=== PATIENT | male | born 1975 | race Caucasian/White ===

== ENCOUNTER 2018-04-24 09:22 | Emergency (ER) | payer BC ==
--- NOTE | 2018-04-24 10:28 | UC ---
Complaint Male HPI - HPI Summary HPI Summary: PATIENT COMPLAINS OF SUPRAPUBIC DISCOMFORT/PRESSURE AND DYSURIA WITH SENSATION OF INCOMPLETE VOIDING FOR THE PAST MONTH OR SO. NO FEVER, NAUSEA, LOW BACK PAIN. NO PENILE DISCHARGE. STATES HE HAD THESE SYMPTOMS IN HIS EARLY 20s AND HAD A THOROUGH EVALUATION BY UROLOGY WITH NO DIAGNOSIS. LAST TIME SX FLARED WAS ABOUT 5 YEARS AGO. PATIENT DOES ADMIT TO HAVING A LOT OF STRESS RECENTLY DUE TO FAMILY HEALTH CONCERNS WELL JOB-RELATED STRESS. PT IS SEXUALLY ACTIVE WITH HIS ONLY. IS NOT CONCERNED ABOUT STD. - History of Current Complaint Chief Complaint: UCGU Stated Complaint: URINARY ISSUE Time Seen by Provider: 04/24/18 09:48 Hx Obtained From: Patient Onset/Duration: Gradual Onset, Lasting Weeks, Still Present Timing: Intermittent Severity Initially: Moderate Severity Currently: Moderate Pain Intensity: 5 Pain Scale Used: 0-10 Numeric Location: Suprapubic Character: Burning Aggravating Factor(s): Voiding Alleviating Factor(s): Nothing Associated Signs And Symptoms: Positive: Dysuria. Negative: Diaphoresis, Back Pain, Fever, Hematuria, Blood in Stool, Appetite, Nausea, Vomiting(# Of Episodes =), Penile Swelling, Penile Discharge - Allergies/Home Medications Allergies/Adverse Reactions: Allergies Allergy/AdvReac Type Severity Reaction Status Date / Time No Known Allergies Allergy Verified 04/24/18 09:32 Home Medications: Home Medications Multivit-Mins/Iron/Folic/Lycop [Centrum Men's Tablet] 1 tab PO DAILY 04/24/18 [ History Confirmed 04/24/18] Omeprazole CAP* [Prilosec CAP* 20 MG] 1 tab PO DAILY 04/24/18 [History Confirmed 04/24/18] PMH/Surg Hx/FS Hx/Imm Hx Previously Healthy: Yes - Surgical History Surgical History: None - Family History Known Family History: Positive: Non-Contributory - Social History Alcohol Use: Daily Substance Use Type: None Smoking Status (MU): Never Smoked Tobacco Review of Systems All Other Systems Reviewed And Are Negative: Yes Constitutional: Positive: Negative Skin: Positive: Negative Respiratory: Positive: Negative Cardiovascular: Positive: Negative Gastrointestinal: Positive: Abdominal Pain. Negative: Nausea Genitourinary: Positive: Dysuria, Frequency, Vaginal/Penile Burning Physical Exam Triage Information Reviewed: Yes Appearance: Well-Appearing, No Pain Distress, Well-Nourished Vital Signs: Initial Vital Signs Temp 98 F 04/24/18 09:30 Pulse 80 04/24/18 09:30 Resp 18 04/24/18 09:30 BP 134/90 04/24/18 09:30 Pulse Ox 99 04/24/18 09:30 Laboratory Tests 04/24/18 09:42 POC Urine Color Yellow POC Urine Clarity Clear POC Urine pH 6.0 POC Ur Specif [place] <= 1.005 L POC Urine Protein Negative POC Ur Glucose (UA) Negative POC Urine Ketones Negative POC Urine Blood Negative POC Urine Nitrite Negative POC Urine Bilirubin Negative POC Urine Urobilinogen 0.2 POC U Leukocyte Esteras Negative Vital Signs Reviewed: Yes Eyes: Positive: Conjunctiva Clear ENT: Positive: Hearing grossly normal Neck: Positive: Supple Respiratory: Positive: No respiratory distress, No accessory muscle use Cardiovascular: Positive: Pulses Normal Abdomen Description: Positive: Soft, Other: - MILD SUPRAPUBIC TENDERNESS. Negative: CVA Tenderness (R), CVA Tenderness (L), Distended, Guarding Musculoskeletal: Positive: No Edema Neurological: Positive: Alert Psychological: Positive: Age Appropriate Behavior Skin: Negative: Rashes Complaint Male Course/Dx - Course Course Of Treatment: URINE TEST TODAY WAS UNREMARKABLE. PATIENT STATES HE HAS BEEN GIVEN CIPRO FOR HIS SYMPTOMS IN THE PAST WHICH SOMETIMES HELPS. WILL GIVE CIPRO TODAY AND SEND URINE FOR CULTURE. ADVISED PATIENT TO REESTABLISH WITH UROLOGY FOR CONTINUED/ADDITIONAL WORKUP. ALSO DISCUSSED THE POSSIBILITY OF INTERSTITIAL CYSTITIS. PT DECLINES STD TESTING. DECLINES PYRIDIUM. - Differential Dx/Diagnosis Provider Diagnosis: Dysuria Discharge - Sign-Out/Discharge Documenting (check all that apply): Patient Departure All imaging exams completed and their final reports reviewed: No Studies - Discharge Plan Condition: Stable Disposition: HOME Prescriptions: Ciprofloxacin TAB* [Cipro 500 MG TAB*] 500 mg PO BID #10 tab Patient Education Materials: Dysuria (ED), Interstitial Cystitis (ED) Referrals: Brodie CHAU,Dionicio Morales [Primary Care Provider] - If Needed Ajay Barreto MD [Medical Doctor] - 2 Weeks Additional Instructions: URINE TEST TODAY WAS UNREMARKABLE. GIVEN YOUR PROLONGED SYMPTOMS WILL SEND YOUR URINE FOR CULTURE ANYWAY TO CONFIRM NO INFECTION. WILL TREAT EMPIRICALLY WITH CIPRO TWICE DAILY FOR 5 DAYS. CONTINUE TO STAY WELL HYDRATED. CONSIDER THE POSSIBILITY OF INTERSTITIAL CYSTITIS. CONSIDER REEVALUATION BY UROLOGY. INTERSTITIAL CYSTITIS What is bladder pain syndrome? Bladder pain syndrome is a condition that causes people to have bladder pain and urinate often. Bladder pain syndrome is often called "BPS" for short. It is also sometimes called "painful bladder syndrome" or "interstitial cystitis." BPS can happen in both men and women, but it is more common in women. Doctors do not know what causes BPS, but some doctors suspect it might be caused by abnormal changes in the lining of the bladder. Sometimes, BPS happens on its own. Other times, it starts after a person has: -An infection of the urinary tract, vagina, or prostate -Surgery on the bladder, pelvis, or back -An injury to the pelvic area or buttocks What are the symptoms of BPS? All people with BPS have bladder pain that gets better after urinating. Other common symptoms include: -Feeling the need to urinate often, during the day and night (even if you don't actually urinate) -Urinating often, during the day and night -Pain in the lower belly or around the area where urine leaves the body Symptoms of BPS are different from person to person and can be mild or severe. People might not have symptoms every day. But they can have "flares," which are times when their symptoms get worse. Some people find that their symptoms get worse at certain times, such as: -After they have certain foods or drinks -During certain times of their monthly cycle (in women) -After having sex or sitting for a long time -During times of stress Is there a test for BPS? There is no one test to check for BPS. But your doctor or nurse will talk with you, do an exam, and probably do a urine test. Depending on the results, your doctor might do other tests, too. For example, some people have a test called "cystoscopy." During cystoscopy, a doctor puts a thin tube with a camera on the end into the opening in the body where urine comes out (called the urethra). Then he or she advances the tube until it reaches the bladder. That way the doctor can look at the inside of the bladder to see if it is abnormal. How is BPS treated? There are different treatments for BPS. Most people need more than one treatment. Different treatments can include: -Bladder training You can train your bladder to urinate less often by holding your urine for longer periods of time. For example, if you feel the need to urinate every 30 minutes, try to wait and urinate every 45 minutes. -Physical therapy Many people with BPS have tight and painful muscles in the lower belly, groin, and buttocks. A physical therapist can teach you exercises to help relax these muscles. -Medicines Doctors can use different medicines to treat BPS. Some medicines help heal the bladder lining, and others can reduce pain. Some medicines come as pills. Others come as liquids and go into the bladder through a tube that is put up the urethra. -Surgery A person might have surgery if he or she still has symptoms after trying all other treatments. During surgery, a doctor puts a small device in the lower back that connects to the nerve that goes to the bladder. The device sends electrical signals to the nerve that can stop it from feeling pain. Can BPS flares be prevented? To help prevent flares, you can: -Avoid the foods and drinks that make your symptoms worse. -Avoid activities that make your symptoms worse. -Get treated quickly for bladder infections, which can make BPS symptoms worse. - Billing Disposition and Condition Condition: STABLE Disposition: Home
--- NOTE | 2018-04-26 07:25 | ED ---
Progress - Progress Note Progress Note: Ucx came back as NEG (<1000, was prescribed cipro). Pls call pt about his sx, he does not to need to take cipro as he does not have a UTI Course/Dx - Course Course Of Treatment: URINE TEST TODAY WAS UNREMARKABLE. PATIENT STATES HE HAS BEEN GIVEN CIPRO FOR HIS SYMPTOMS IN THE PAST WHICH SOMETIMES HELPS. WILL GIVE CIPRO TODAY AND SEND URINE FOR CULTURE. ADVISED PATIENT TO REESTABLISH WITH UROLOGY FOR CONTINUED/ADDITIONAL WORKUP. ALSO DISCUSSED THE POSSIBILITY OF INTERSTITIAL CYSTITIS. PT DECLINES STD TESTING. DECLINES PYRIDIUM. - Diagnoses Provider Diagnoses: Dysuria Discharge - Sign-Out/Discharge Documenting (check all that apply): Post-Discharge Follow Up - SEE progress note All imaging exams completed and their final reports reviewed: No Studies - Discharge Plan Condition: Stable Disposition: HOME Prescriptions: Ciprofloxacin TAB* [Cipro 500 MG TAB*] 500 mg PO BID #10 tab Patient Education Materials: Dysuria (ED), Interstitial Cystitis (ED) Referrals: Brodie CHAU,Dionicio Morales [Primary Care Provider] - If Needed Ajay Barreto MD [Medical Doctor] - 2 Weeks Additional Instructions: URINE TEST TODAY WAS UNREMARKABLE. GIVEN YOUR PROLONGED SYMPTOMS WILL SEND YOUR URINE FOR CULTURE ANYWAY TO CONFIRM NO INFECTION. WILL TREAT EMPIRICALLY WITH CIPRO TWICE DAILY FOR 5 DAYS. CONTINUE TO STAY WELL HYDRATED. CONSIDER THE POSSIBILITY OF INTERSTITIAL CYSTITIS. CONSIDER REEVALUATION BY UROLOGY. INTERSTITIAL CYSTITIS What is bladder pain syndrome? Bladder pain syndrome is a condition that causes people to have bladder pain and urinate often. Bladder pain syndrome is often called "BPS" for short. It is also sometimes called "painful bladder syndrome" or "interstitial cystitis." BPS can happen in both men and women, but it is more common in women. Doctors do not know what causes BPS, but some doctors suspect it might be caused by abnormal changes in the lining of the bladder. Sometimes, BPS happens on its own. Other times, it starts after a person has: -An infection of the urinary tract, vagina, or prostate -Surgery on the bladder, pelvis, or back -An injury to the pelvic area or buttocks What are the symptoms of BPS? All people with BPS have bladder pain that gets better after urinating. Other common symptoms include: -Feeling the need to urinate often, during the day and night (even if you don't actually urinate) -Urinating often, during the day and night -Pain in the lower belly or around the area where urine leaves the body Symptoms of BPS are different from person to person and can be mild or severe. People might not have symptoms every day. But they can have "flares," which are times when their symptoms get worse. Some people find that their symptoms get worse at certain times, such as: -After they have certain foods or drinks -During certain times of their monthly cycle (in women) -After having sex or sitting for a long time -During times of stress Is there a test for BPS? There is no one test to check for BPS. But your doctor or nurse will talk with you, do an exam, and probably do a urine test. Depending on the results, your doctor might do other tests, too. For example, some people have a test called "cystoscopy." During cystoscopy, a doctor puts a thin tube with a camera on the end into the opening in the body where urine comes out (called the urethra). Then he or she advances the tube until it reaches the bladder. That way the doctor can look at the inside of the bladder to see if it is abnormal. How is BPS treated? There are different treatments for BPS. Most people need more than one treatment. Different treatments can include: -Bladder training You can train your bladder to urinate less often by holding your urine for longer periods of time. For example, if you feel the need to urinate every 30 minutes, try to wait and urinate every 45 minutes. -Physical therapy Many people with BPS have tight and painful muscles in the lower belly, groin, and buttocks. A physical therapist can teach you exercises to help relax these muscles. -Medicines Doctors can use different medicines to treat BPS. Some medicines help heal the bladder lining, and others can reduce pain. Some medicines come as pills. Others come as liquids and go into the bladder through a tube that is put up the urethra. -Surgery A person might have surgery if he or she still has symptoms after trying all other treatments. During surgery, a doctor puts a small device in the lower back that connects to the nerve that goes to the bladder. The device sends electrical signals to the nerve that can stop it from feeling pain. Can BPS flares be prevented? To help prevent flares, you can: -Avoid the foods and drinks that make your symptoms worse. -Avoid activities that make your symptoms worse. -Get treated quickly for bladder infections, which can make BPS symptoms worse. - Billing Disposition and Condition Condition: STABLE Disposition: Home
== END 2018-04-24 10:15 | disposition home or self-care (01) ==
LOC: UCEAST 09:22
DX: R30.0 Dysuria (principal); R10.9 Unspecified abdominal pain; R35.0 Frequency of micturition
CPT/HCPCS: 81003; 87086; 99202; G0463